=== PATIENT | female | born 2000 | race Caucasian/White ===

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

== ENCOUNTER 2019-07-23 22:22 | Emergency (ER) | payer MEDICAID ==
[~2019-07-23] VITALS: Ht 165.1 cm; Wt 63.1 kg
[2019-07-23 23:15] LABS: HCG UR SG 1.031 (1.003-1.030)
[2019-07-23 23:17] LABS: CULTURE INDICATED? YES; MICROSCOPIC INDICATED
--- NOTE | 2019-07-24 00:16 | NUR ---
PT TO RM FROM LOBBY AND CARE ASSUMED.
--- NOTE | 2019-07-24 00:17 | NUR ---
PT TO ROOM AT THIS TIME.
[2019-07-24 00:45] VITALS: BP 152/88
--- NOTE | 2019-07-24 00:45 | NUR ---
VISUAL EXAM OF VAGINAL AREA COMPLETED BY AARON JAMISON. NO S/S OF ACUTE DISTRESS. VSS. CALL LIGHT IN REACH. AWAITING FURTHER DISPO.
== END 2019-07-24 01:26 | disposition home or self-care (01) ==
LOC: ED 07-24 01:24
DX: N30.00 Acute cystitis without hematuria (principal)
CPT/HCPCS: 81001; 81025; 87086; 99283